=== PATIENT | female | born 1965 | race Two or more races ===

== ENCOUNTER → 2025-03-06 | Outpatient (CLI) | payer MEDICARE, MEDICAID, SELFPAY ==
--- NOTE | 2025-03-06 09:00 | XR_ITS ---
Examination: Gastrografin enema with KUB Fluoroscopy 18 spot fluoroscopic films of the colon Date and time: March 06, 2025 0908 hours INDICATIONS: Incomplete colonoscopy January 02, 2025 TECHNIQUE AND FINDINGS: Shoe Singer AP supine abdomen demonstrates mild stool throughout the colon Colon filled in retrograde manner to the cecum with Gastrografin, reflux into terminal ileum Colonic diverticulosis involving sigmoid colon and descending colon No diverticulitis No constricting colonic lesion No rectal or other ulcerations IMPRESSION: Colonic diverticulosis, no diverticulitis
== END | disposition home or self-care (01) ==
LOC: CDIM 08:33
PROVIDERS: PCP Physician Assistant; Referring Provider Physician Assistant; Visit Provider Physician Assistant
DX: Z12.11 Encounter for screening for malignant neoplasm of colon (principal); K57.30 Diverticulosis of large intestine without perforation or abscess without bleeding; K74.60 Unspecified cirrhosis of liver
CPT/HCPCS: 74280

== ENCOUNTER → 2025-05-09 | Outpatient (CLI) | payer MEDICARE, MEDICAID, SELFPAY ==
--- NOTE | 2025-05-09 10:30 | XR_ITS ---
Examination: Abdomen sonogram, complete Date and time of exam: May 09, 2025 1045 hours INDICATIONS: Right upper abdominal pain beginning 3 years ago, diagnosis cirrhosis. Technique: Multiple real-time grayscale transabdominal sonographic images of the abdomen have been obtained. Findings: Multiple gallstones Normal gallbladder wall Normal common bile duct 0.4 cm Pancreatic head 3.0 cm Aorta not enlarged. Liver 13.5 cm fatty infiltration irregular contour no focal liver lesions Normal hepatopedal portal venous flow Patent IVC Right kidney 10.4 cm cortex 1.8 cm Left kidney 10.3 cm cortex 1.7 cm No hydronephrosis Spleen 11.9 cm IMPRESSION: Cholelithiasis, negative for cholecystitis Cirrhosis, no focal liver lesions
== END | disposition home or self-care (01) ==
LOC: CDIM 10:22
PROVIDERS: PCP Physician Assistant; Referring Provider Physician Assistant; Visit Provider Physician Assistant
DX: K80.20 Calculus of gallbladder without cholecystitis without obstruction (principal); K74.60 Unspecified cirrhosis of liver
CPT/HCPCS: 76700

== ENCOUNTER → 2025-05-24 | Outpatient (CLI) | payer MEDICARE, MEDICAID, SELFPAY ==
--- NOTE | 2025-05-24 10:00 | XR_ITS ---
Examination: Screening digital mammography, bilateral Computer aided detection 3-D breast Tomosynthesis, bilateral Date and time of exam: 05/24/2025, 9:48 AM Comparisons: February 2022, October 2023 Indications: Screening Technique: Nonmagnified MLO, CC views of the breasts to been obtained, reconstructed from 3-D Tomosynthesis images. R2 computer aided detection program utilized for evaluation of suspicious masses and/or abnormal calcifications. 3-D Tomosynthesis images obtained. Technologist: Findings: There are scattered areas of fibroglandular density. No evidence of abnormal masses or suspicious calcifications. Impression: BI-RADS category 1: Negative findings (within normal) Recommend 1 year follow-up mammogram
== END | disposition home or self-care (01) ==
LOC: CDIM 09:33
PROVIDERS: Referring Provider Physician Assistant; Visit Provider Physician Assistant
DX: Z12.31 Encounter for screening mammogram for malignant neoplasm of breast (principal); R92.313 Mammographic fatty tissue density, bilateral breasts
CPT/HCPCS: 77063; 77067

== ENCOUNTER 2025-07-17 10:44 | Emergency (ER) | payer MEDICARE, SELFPAY ==
[2025-07-17] VITALS (7 sets, daily range): BP systolic 94–152; BP diastolic 47–94; PULSE 61–91; RESP 19–26; TEMP 36.9–37.6; O2SAT 92–96; BMI 37.8
--- NOTE | 2025-07-17 | XR_ITS ---
MRI abdomen, without contrast. MRCP Date and time of exam: July 17, 2025, 1543 hours INDICATIONS: Vomiting abdominal pain several days, gallbladder sonogram today thickened gallbladder wall Technique: Multiple axial and coronal images of the abdomen have been obtained with the Siemens 1.5T MRI scanner. Images obtained included T1 weighted transverse images, T2-weighted transverse images, T2-weighted transverse images fat-suppressed, T2 weighted haste fat suppressed transverse images, T1 weighted images, in and out of phase images, T2-weighted coronal images, breath hold, T2 weighted haze coronal images as well as T2 weighted coronal thick slab images, MRCP. Findings: Small gallstones Gallbladder wall does not show definite edema or thickening Common bile duct 5.5 mm, no definite common bile duct stones Pancreatic duct is not dilated No pancreatic edema No splenic lesion Negative for ascites IMPRESSION: Cholelithiasis, negative for cholecystitis No common hepatic or common bile duct stones noted
--- NOTE | 2025-07-17 11:00 | XR_ITS ---
Examination: Abdomen sonogram, Limited Date and time of exam: July 17, 2025, 12:20 p.m. INDICATIONS: Right upper abdominal pain beginning 5 days ago Technique: Real-time thomas scale transabdominal sonographic images of the upper abdomen obtained. Findings: Multiple gallstones Gallbladder wall is thickened up to 9 mm Common bile duct 0.4 cm Pancreatic head 3.0 cm Liver 13.28 cc lobular contour fatty infiltration Normal hepatopetal portal venous flow Patent IVC IMPRESSION: Cholelithiasis, suspicious for cholecystitis, consider HIDA scan or MRCP follow-up
--- NOTE | 2025-07-17 11:01 | PD.EDRME ---
Rapid Medical Screening Exam RME Arrival date/time: 07/17/25 10:44 60-year-old female presents to the Emergency Department today for complaint of abdominal pain Chief Complaint: Abdominal Pain Vital signs: Vital Signs Temperature 98.9 F 07/17/25 10:59 Pulse Rate 91 07/17/25 10:59 Respiratory Rate 19 07/17/25 10:59 Blood Pressure 121/84 07/17/25 10:59 Pulse Oximetry (%) 95 07/17/25 10:59 Oxygen Delivery Method Room Air 07/17/25 10:59
[2025-07-17 11:38] LABS: Basophils # (Auto) 0.1 Thou/mm3 (0.0-0.2); Basophils % (Auto) 1 % (0-2.5); Eosinophils # (Auto) 0.2 Thou/mm3 (0.0-0.5); Eosinophils % (Auto) 2 % (0-10); Hematocrit 40.4 % (36.0-46.0); Hemoglobin 14.1 g/dL (12.0-16.0); Immature Granulocytes Auto 0.02 Thou/mm3 (0.00-0.00); Lymphocytes # (Auto) 1.3 Thou/mm3 (1.0-4.8); Lymphocytes % (Auto) 17 % (10-50); Mean Corpuscular HGB Conc 34.9 g/dl (31.0-37.0); Mean Corpuscular Hemoglobin 32.8 pg (25.0-35.0); Mean Corpuscular Volume 94 fL (80-100); Monocytes # (Auto) 0.9 Thou/mm3 (0.0-0.8); Monocytes % (Auto) 11 % (0-12); Neutrophils # (Auto) 5.5 Thou/mm3 (1.8-7.7); Neutrophils % (Auto) 69 % (37-80); Nucleated Red Blood Cell # 0.00 Thou/mm3 (0.00-0.00); Nucleated Red Blood Cell % 0 /100 WBC (0); Platelet Count 119 Thou/mm3 (140-440); RDW Standard Deviation 45.8 fL (36.4-46.3); Red Blood Count 4.30 Miln/mm3 (4.00-5.20); White Blood Count 7.9 Thou/mm3 (3.6-11.0)
[2025-07-17 11:58] LABS: Alanine Aminotransferase 92 U/L (10-49); Albumin, Serum 3.9 gm/dL (3.4-4.8); Albumin/Globulin Ratio 1.1 (1.2-2.2); Alkaline Phosphatase 143 U/L (46-116); Anion Gap 10 (7-16); Aspartate Amino Transferase 163 U/L (0-34); BUN/Creatinine Ratio 7 Ratio (12-20); Bilirubin,Total 2.8 mg/dL (0.3-1.2); Blood Urea Nitrogen < 5 mg/dL (9-23); Calcium 8.5 mg/dL (8.3-10.6); Calcium (Corrected) 8.6 mg/dL (8.5-10.1); Carbon Dioxide 23.9 mMol/L (20.0-31.0); Chloride 101 mMol/L (98-107); Creatinine (Component) 0.7 mg/dL (0.6-1.3); Estimated Creatinine Clearance 87.7 mL/min (>60); Globulin 3.4 gm/dL (2.3-3.5); Glucose 178 mg/dL (74-106); Lipase 35 U/L (12-53); Osmolality,Calculated 271 (275-295); Potassium 4.0 mMol/L (3.4-5.1); Sodium 135 mMol/L (136-145); Total Protein 7.3 gm/dL (5.7-8.2); Troponin I < 0.002 ng/mL (0.0-0.045); eGFR > 60 See Note
[2025-07-17 12:06] LABS: Collection Type, Urine Clean Catch
[2025-07-17 12:23] LABS: Bacteria,Urine Rare; Bilirubin,Urine 1+ (Negative); Blood,Urine Negative (Negative); Clarity,Urine Turbid (Clear/Hazy); Color,Urine Drk-Yellow (Lt Yel-Yel); Culture Indicated,Urine Not Indicated; Glucose, Urine Negative (Negative); Ketones,Urine Negative (Negative); Leukocyte Esterase,Urine Positive (Negative); Nitrite,Urine Negative (Negative); PH,Urine 6.5 (5.0-7.0); Protein,Urine 1+ (Neg - Trace); RBC,Urine 9 /hpf (0-3); Specific Gravity,Urine 1.027 (1.001-1.035); Squamous Epithelial Cell,Urine 3 /hpf (0-5); Urobilinogen,Urine 3.0 mg/dL (0.0-1.0); WBC,Urine 2 /hpf (0-5)
--- NOTE | 2025-07-17 13:31 | EDNOTE_ITS ---
ED Abdominal Pain RME/HPI General Chief Complaint: Abdominal Pain Stated complaint: Abdominal pain/lower back pain X 1week Time seen by provider: 07/17/25 13:31 Arrival date/time: 07/17/25 10:44 Limitations: no limitations RME / HPI RME / HPI narrative: 07/17/25 10:44 60-year-old female presents to the Emergency Department today for complaint of abdominal pain Dr. Boykin evaluation Patient is a 60-year-old female with medical history notable for hyperlipidemia diabetes, cirrhosis, pulmonary fibrosis, that is in the emergency department with concerns for abdominal pain. Abdominal pain has been progressive over the last few days, associated with vomiting and intermittent episodes of diarrhea when the pain goes away. Denies fever but does endorse chills. Pain is in the right upper quadrant. Patient has a history of cholelithiasis, in the past approximately a year ago in November symptoms admitted to remove her gallbladder however want unable to because as per the patient it was adherent too tightly to the liver. Gallbladder was not removed, she was told to follow-up as an outpatient with another surgeon that could possibly remove her gallbladder. Patient does not have any allergies to medications. Patient states that her cirrhosis is from medications that she was given for her pulmonary fibrosis. Related Data Home Medications ?Medication ?Instructions ?Recorded ?Confirmed sitagliptin phosphate 100 mg 100 mg PO QDAY 03/11/22 0 12/13/23 tablet (Januvia) acetaminophen 300 mg-codeine 30 mg 1 tab PO BID PRN Pa in 12/13/23 12/13/23 tablet acetaminophen 325 mg tablet 650 mg PO QID PRN Pain 12/13/23 (Tylenol) atorvastatin 10 mg tablet 10 mg PO QDAY 12/13/2312/12 dapagliflozin propanediol 5 mg 5 mg PO QAM 12/13/23 tablet (Farxiga) Allergies Allergy/AdvReac Type Severity Reaction Status Date / Time No Known Allergies Allergy Verified 07/17/25 10:50 ED Exam General Limitations: Present no limitations General appearance: Present alert and in no apparent distress Head Head exam: Present atraumatic and normocephalic Eye Eye exam: Present normal appearance and PERRL ENT ENT exam: Present normal exam and normal oropharynx Neck Neck exam: Present normal inspection Chest Chest inspection: Present symmetric chest wall rise Respiratory Respiratory exam: Present normal lung sounds bilaterally; Absent respiratory distress Cardiovascular Cardiovascular exam: Present regular rate Abdominal Exam Abdominal exam: Present soft, distention and tenderness (Worse in the right upper quadrant,); Absent guarding Neurological Exam Neurological exam: Present alert and other (No focal neurodeficits) Psychiatric Psychiatric exam: Present normal affect and normal mood Skin Skin exam: Present warm, dry and intact Course Quality Measures none Orders Category Date Time Status MRI Screening NOW Care 07/17/25 13:32 Completed Referral - [employer] Table Stat Cons 07/17/25 16:39 Active MR MRCP Stat Exams 07/17/25 Completed US gall bladder Stat Exams 07/17/25 11:00 Completed Blood Culture (Lab) Stat Lab 07/17/25 13:53 Completed CBC Stat Lab 07/17/25 11:14 Completed CMP [Comprehensive Metabolic Panel] Stat Lab 07/17/25 22:24 Completed Comprehensive Metabolic Panel Stat Lab 07/17/25 11:28 Completed Lipase Stat Lab 07/17/25 11:28 Completed PT [Prothrombin Time with INR] Stat Lab 07/17/25 11:28 Completed Troponin I Stat Lab 07/17/25 11:28 Completed UA, C/S IF [Urinalysis, C/S if Indicated] Stat Lab 07/17/25 12:00 Completed Morphine* Inj Med 07/17/25 14:08 Discontinued 2 mg IVP STAT STA cefTRIAXone/D5w 1gm IV premix [Rocephin/D5w 1gm IV Med 07/17/25 13:37 Discontinued premix] 1 gm in 50 ml IV STAT metroNIDAZOLE/NS 500 MG IVPB [Flagyl 500 mg IV] Med 07/17/25 13:37 Discontinued 500 mg in 100 ml IV STAT Vital Signs Vital signs: Vital Signs Temperature 98.9 F 07/17/25 10:59 Pulse Rate 91 07/17/25 10:59 Respiratory Rate 19 07/17/25 10:59 Blood Pressure 121/84 07/17/25 10:59 Pulse Oximetry (%) 95 07/17/25 10:59 Oxygen Delivery Method Room Air 07/17/25 10:59 Abdominal Pain MDM MDM Narrative MDM Narrative:: Patient is a 60-year-old female seen emerged for concerns of abdominal pain. Vital signs and exam as listed. Concern for cholelithiasis, cholecystitis, pancreatitis, ACS arrhythmia electrolyte abnormality among others. Prior provider evaluated patient. Ordered labs, right upper quadrant ultrasound offer medication for symptom relief. Labs with evidence of worsening thrombocytopenia, platelets currently 119. Patient hemoglobin 14. No leukocytosis no left shift no significant acute electrolyte abnormality, patient does have a T. bili of 2.8 this is new from prior, also has a transaminitis with an AST of 163 ALT 92, alk phos 143 troponin not elevated. Lipase normal. Urinalysis with no nitrites positive for leuk esterase 9 red blood cells 2 white blood cells 3 squames rare bacteria. Will treat. Right upper quadrant ultrasound shows multiple gallstones, thickened gallbladder wall up to 9 mm, the common bile duct is 0.4 cm patient also has fatty liver. Given elevated T. bili, and thickening of the gallbladder concern the patient may have choledocholithiasis or cholecystitis. Will treat. Will also order MRCP for further evaluation. Per chart review in November [address]23 Dr. Antunez performed a laparoscopic attempt at removing her gallbladder, and had the following findings: This patient had a translucent and noninfected gallbladder and she has advanced cirrhosis of liver with hepatomegaly she also has portal hypertension as evidenced by dilated the short gastric vessels and the vessels in the leg and falciform ligament. She also has collateral circulation through the colon into the abdominal wall. The vessels in the omentum were also dilated. After looking at all that I decided not to operate on her because she has an increased risk of operative and postoperative bleeding. 4:40p discussed case with on-call surgeon Dr. Holliday, states that given patient's history of cirrhosis and findings on her prior attempted laparoscopic removal of her gallbladder, patient has very high risk for bleeding. Given patient is presenting again with cholecystitis and severe pain, Dr. Holliday recommends that we transfer to a tertiary care center that is able to safely surgically manage the patient as our surgeons will not be able to do so here. Initiated transfer for higher level of care. [place] and [facility] rejected case secondary to capacity. MRCP resulted, shows small gallstones, the gallbladder wall does not show definite edema or thickening, the common bile duct is 5.5 mm, no definite common bile duct stones. The pancreatic duct is not dilated. No pancreatic edema. Read as negative for cholecystitis. Given patient's complicated history, recurrent episodes of abdominal pain I believe that is still to her benefit that we continue discussing the case with tertiary care centers. Patient will be signed out to [facility] provider Dr. Simms. Patient is pending possible transfer to a tertiary care center for management of her symptomatic cholelithiasis, with findings concerning for possible choledocholithiasis. Patient data External records reviewed:: [facility] previous records Clinical information provided by:: patient Social determinants that could affect healthcare access:: none Patient has the following chronic illnesses:: See MDM How is presenting disease/condition affected by chronic disease/condition?: exacerbated by Evaluation data The following diagnostics were reviewed and interpreted by me:: lab results, radiology exam(s) and EKG tracing(s) Lab and/or radiology exams considered but not ordered:: None Interpretation Summary: See MDM Medications / Prescriptions Medications or Prescriptions considered but not ordered:: None Medication administrations:: Medication Administration History Discontinued Medications Ceftriaxone Sodium/Dextrose (Rocephin/D5w 1gm Iv Premix) 1 gm in 50 mls @ 100 mls/hr IV STAT STA Stop: 07/17/25 14:06 Last Infusion: 07/17/25 15:11 Dose: Infused Documented By: Admin: 07/17/25 14:41 Dose: 100 mls/hr Documented By: CHAU Metronidazole (Flagyl 500 Mg Iv) 500 mg in 100 mls @ 200 mls/hr IV STAT STA Stop: 07/17/25 14:06 Last Infusion: 07/17/25 21:28 Dose: Infused Documented By: Infusion: 07/17/25 20:40 Dose: 200 mls/hr Documented By: Infusion: 07/17/25 15:40 Dose: 0 mls/hr Documented By: Admin: 07/17/25 15:22 Dose: 200 mls/hr Documented By: ANNA Morphine Sulfate (Morphine Sulf Inj 4 Mg/Ml Vial) 2 mg IVP STAT STA Stop: 07/17/25 14:09 Last Admin: 07/17/25 14:39 Dose: 2 mg Documented By: CHAU See above Consultations Consultation(s) initiated? (list below): Yes Diagnosis Differential diagnosis abdominal pain: other Most likely diagnosis given after review of the tests above:: None Admission Indicated Admission indicated?: not indicated (Transfer) Admission Request Was there a request for admission?: No Disposition Plan Disposition Plan: other (specify) (Signed out) Discharge Plan Plan Patient Disposition: HOME (Self Care) Prescriptions/Referrals Prescriptions/Med Rec: No Action Januvia 100 mg Tablet 100 mg PO QDAY acetaminophen [Tylenol] 325 mg Tablet 650 mg PO QID PRN (Reason: Pain) atorvastatin 10 mg Tablet 10 mg PO QDAY acetaminophen-codeine 300-30 mg Tablet 1 tab PO BID PRN (Reason: Pain) dapagliflozin propanediol [Farxiga] 5 mg Tablet 5 mg PO QAM Referrals: No Primary/Family,Physician [Primary Care Provider] - In 1 week Problem List Clinical Impression: Cholelithiasis Patient/Caregiver Discharge Instructions Education Materials: ED Gallstones with Biliary Colic Additional Instructions: There is no need to immediately get your gallbladder taken out at this time. You may want to get your primary care's opinion on where to possibly be evaluated to get your gallbladder removed in the future. Print Language: Tajik Stand Alone Forms: Alejandra Award Info., Patient Portal Info Letter
[2025-07-17] MEDS: MORPHINE SULF INJ 4 MG/ML VIAL 2 MG IVP (14:39)
[2025-07-17] MEDS: cefTRIAXone/D5w 1gm IV premix 1 GM/50 ML BAG IV (14:41)
[2025-07-17] MEDS: metroNIDAZOLE/NS 500 MG IVPB 500 MG/100 ML BAG 200 MG IV (15:22)
[2025-07-17 16:55] LABS: INR 1.2 (0.9-1.3); Prothrombin Time 12.9 Seconds (9.0-12.2)
--- NOTE | 2025-07-17 17:50 | PC.CM ---
Addendum entered by Donna Duran RN 07/17/25 18:47: 1945 I contacted [facility] and initiated a transfer. I faxed over information and pushed over images. Packet with CD handed to ED charge nurse. Patient was declined by [facility] and [facility] due to capacity. Addendum entered by Donna Duran RN 07/17/25 18:18: 1815 I received a call back from [facility] and they declined patient due to capacity. Original Note: 1730 I contacted [facility] and initiated a transfer. I connected Dr. Boykin and transfer nurse Ketan on a conference call to discuss patient. 1710 I received a call back from [facility] and they declined patient due to capacity. I stated packet and made a CD. 1700 I called [facility] and faxed over information. 1645 I received a referral to transfer patient for choledocolithiasis.
--- NOTE | 2025-07-17 20:42 | PC.NURSE ---
resumed flagyl at 200 ml/hr. medication was paused. dr shay made aware. dr shay okayed to resume medication
[2025-07-17 23:01] LABS: Alanine Aminotransferase 78 U/L (10-49); Albumin, Serum 3.8 gm/dL (3.4-4.8); Albumin/Globulin Ratio 1.2 (1.2-2.2); Alkaline Phosphatase 125 U/L (46-116); Anion Gap 12 (7-16); Aspartate Amino Transferase 116 U/L (0-34); BUN/Creatinine Ratio 7 Ratio (12-20); Bilirubin,Total 2.2 mg/dL (0.3-1.2); Blood Urea Nitrogen < 5 mg/dL (9-23); Calcium 8.6 mg/dL (8.3-10.6); Calcium (Corrected) 8.8 mg/dL (8.5-10.1); Carbon Dioxide 25.6 mMol/L (20.0-31.0); Chloride 101 mMol/L (98-107); Creatinine (Component) 0.7 mg/dL (0.6-1.3); Estimated Creatinine Clearance 87.7 mL/min (>60); Globulin 3.2 gm/dL (2.3-3.5); Glucose 128 mg/dL (74-106); Osmolality,Calculated 276 (275-295); Potassium 3.6 mMol/L (3.4-5.1); Sodium 139 mMol/L (136-145); Total Protein 7.0 gm/dL (5.7-8.2); eGFR > 60 See Note
--- NOTE | 2025-07-17 23:05 | PD.EDADDENDU ---
Emergency Room Addendum <Nuria Portillo - Last Filed: 07/17/25 23:13> Addendum Narrative: 2300: Care assumed from Dr. Boykin, the previous shift emergency physician. Past medical, surgical, social and family history reviewed. Vitals and home medications reviewed. Results and treatment plan discussed. I will assume the care of the patient at this time and will follow the patient. Please refer to the emergency department record for history and examination from initial visit. <Ulysses Simms DO - Last Filed: 07/18/25 04:40> Addendum Narrative: 2300: Care assumed from Dr. Boykin, the previous shift emergency physician. Past medical, surgical, social and family history reviewed. Vitals and home medications reviewed. Results and treatment plan discussed. I will assume the care of the patient at this time and will follow the patient. Please refer to the emergency department record for history and examination from initial visit. Patient was not accepted by any tertiary care facility. Patient has no clinical evidence for cholecystitis. She has [place] lithiasis. Patient will be discharged in stable condition.
[2025-07-18 00:29] VITALS: BP 106/63; PULSE 60; RESP 20; TEMP 37.1; O2SAT 95
[2025-07-18 03:27] VITALS: BP 91/63; PULSE 57; RESP 18; TEMP 37.2; O2SAT 95
[2025-07-18 05:29] VITALS: BP 118/68; PULSE 72; RESP 18; TEMP 36.8; O2SAT 95
[2025-07-18 05:44] VITALS: BP 107/84; PULSE 67; RESP 119; TEMP 37.2; O2SAT 94
== END 2025-07-18 05:45 | disposition home or self-care (01) ==
PROVIDERS: Nurse Practitioner Primary Care; Emergency Provider Emergency Medicine
DX: K80.70 Calculus of gallbladder and bile duct without cholecystitis without obstruction (principal); E11.9 Type 2 diabetes mellitus without complications; E78.5 Hyperlipidemia, unspecified; J84.10 Pulmonary fibrosis, unspecified; K74.60 Unspecified cirrhosis of liver; Z79.84 Long term (current) use of oral hypoglycemic drugs
CPT/HCPCS: 36415; 74181; 76705; 80053; 81001; 83690; 84484; 85025; 85610; 87040; 96365; 96366; 96375; 99285; J0696; J2270; J3490; J1836